=== PATIENT | female | born 1975 | race Caucasian/White ===

== ENCOUNTER 2019-09-21 12:09 | Outpatient (CLI) | payer OTHER, SELFPAY ==
[2019-09-24 13:53] LABS: Immunoglobulin G, Serum 527 mg/dL (600-1640); Immunoglobulin G1 311 mg/dL (382-929); Immunoglobulin G2 171 mg/dL (241-700); Immunoglobulin G3 54 mg/dL (22-178); Immunoglobulin G4 5.4 mg/dL (4.0-86.0)
== END 2019-09-21 12:10 | disposition home or self-care (01) ==
PROVIDERS: PCP Family Medicine; Visit Provider Nurse Practitioner Family
DX: D83.9 Common variable immunodeficiency, unspecified (principal)
CPT/HCPCS: 36415; 82784; 82787

== ENCOUNTER 2019-11-19 10:33 | Outpatient (CLI) | payer OTHER, SELFPAY ==
[2019-11-23 23:46] LABS: Immunoglobulin G, Serum 547 mg/dL (600-1640); Immunoglobulin G1 325 mg/dL (382-929); Immunoglobulin G2 169 mg/dL (241-700); Immunoglobulin G3 53 mg/dL (22-178); Immunoglobulin G4 5.2 mg/dL (4.0-86.0)
== END 2019-11-19 10:34 | disposition home or self-care (01) ==
LOC: ANHLAB 10:34
PROVIDERS: PCP Family Medicine; Visit Provider Nurse Practitioner Family
DX: D83.9 Common variable immunodeficiency, unspecified (principal)
CPT/HCPCS: 36415; 82784; 82787

== ENCOUNTER 2020-03-29 10:47 | Outpatient (CLI) | payer OTHER, SELFPAY ==
--- NOTE | ~2020-03-29 | XR_ITS ---
EXAMINATION: XR chest 2V DATE: 03/29/2020 11:12 INDICATION: Shortness of breath. TECHNIQUE: Frontal and lateral views of the chest were obtained. COMPARISON: Chest 2 views 05/20/2018, chest CT 08/07/2018 FINDINGS: The chest demonstrates clear lungs without pneumonia, pleural effusion, or pneumothorax. Th e heart size is normal. There are surgical clips in left axilla. IMPRESSION: 1. No acute cardiopulmonary disease. Reviewed, dictated and finalized at location A.
== END 2020-03-29 10:48 | disposition home or self-care (01) ==
PROVIDERS: PCP Family Medicine; Visit Provider Nurse Practitioner Family
DX: R06.02 Shortness of breath (principal)
CPT/HCPCS: 71046

== ENCOUNTER 2020-11-17 10:03 | Outpatient (CLI) | payer OTHER, SELFPAY ==
[2020-11-17 12:10] LABS: Free T4 Free Thyroxine 0.89 ng/mL (0.78-2.19)
== END 2020-11-17 10:04 | disposition home or self-care (01) ==
LOC: ANHLAB 10:06
PROVIDERS: PCP Family Medicine; Visit Provider Nurse Practitioner Family
DX: E66.9 Obesity, unspecified (principal); R53.83 Other fatigue
CPT/HCPCS: 36415; 84439; 84443

== ENCOUNTER 2022-11-18 10:53 | Observation (INO) | payer BC, SELFPAY ==
[2022-11-18] VITALS (19 sets, daily range): BP systolic 106–183; BP diastolic 62–94; PULSE 62–121; RESP 16–24; TEMP 36.4–37.6; O2SAT 90–99; BMI 29.2
--- NOTE | ~2022-11-18 | CT_ITS ---
EXAMINATION: CTA chest PE protocol DATE: 11/18/2022 12:41 INDICATION: Shortness of breath. TECHNIQUE: Computed tomography angiography (CTA) of the chest was performed with 100 mL Omnipaque-350 intravenous contrast timed to evaluate the pulmonary arteries. Coronal maximum intensity projection 3D-reconstructions were created by the technologist. Automated exposure control and iterative reconst ruction technique were employed. The dose-length product was 291.31 mGy-cm. COMPARISON: Chest CT 08/07/2018 FINDINGS: There is mild emphysema. There are tree-in-bud opacities and centrilobular nodules in all l obes, consistent with pneumonia. No pleural effusion. The heart size is normal. No pericardial effusi on. There is mild bilateral hilar and mediastinal lymphadenopathy, likely reactive. There is no pulmo nary embolus. There is mild thoracic spondylosis. There are surgical clips in left axilla. IMPRESSION: 1. No pulmonary embolus. 2. Widespread pneumonia. 3. Mild emphysema. Reviewed, dictated and finalized at location A.
--- NOTE | 2022-11-18 10:55 | ECG_ITS ---
Measurements Intervals [place] Rate: 114 P: 85 DC: 132 QRS: 65 QRSD: 92 T: 69 QT: 309 QTc: 426 Interpretive Statements SINUS TACHYCARDIA RIGHT ATRIAL ENLARGEMENT [0.3mV P-WAVE] MINIMAL VOLTAGE CRITERIA FOR LVH, CONSIDER NORMAL VARIANT [MEETS CRITERIA IN ONE OF: R(aVL), S(V1), R(V5), R(V5/V6)+S(V1)] ABNORMAL ECG Electronically Signed On 11-18-2022 12:00:51 CDT by Morales Sun M.D.
--- NOTE | 2022-11-18 10:57 | ED.GENADULT ---
HPI - General Adult General Chief complaint: Shortness of Breath/Dyspnea Stated complaint: SOB Time Seen by Provider: 11/18/22 10:55 History of Present Illness HPI narrative: Alka is a 47F with a PMH of COPD, IgG deficiency, tobacco abuse and obesity that presented to the ED with dyspnea that started 7 days ago. It has become progressively worse despite albuterol and being on steroids. She also admits coughing and sputum production. No CP, lightheadedness or syncope. Related Data Allergies Allergy/AdvReac Type Severity Reaction Status Date / Time No Known Allergies Allergy Verified 11/18/22 10:57 Review of Systems Review of Systems: All systems reviewed & are unremarkable except as noted in HPI and below PMFSH Past Medical History Medical History COPD (chronic obstructive pulmonary disease) Surgical History Surgical History H/O tubal ligation (~2016) Hx of cholecystectomy (~1994) Family History Family History Mother Family history of lung cancer Father Family history of malignant neoplasm of urinary bladder Other Asthma Social History Social History Smoking packs per day: 0.5 Smoking cigarettes per day: 10.0 Years smoked: 35 Smoking pack-years: 17.50 Smoking status: Former smoker Tobacco type: cigarettes Second hand tobacco smoke exposure: Yes Alcohol intake: never Gender identity (if verbalized by the patient): Female Spiritual care concerns: No Exam Const: General: ill appearing acutely Nutritional Appearance: well nourished Orientation/consciousness: patient oriented x3 HENMT: Head: normal to inspection Ears: external ears normal Face/Nose/Sinus: Normal external nose present Eyes: Conjunctivae: conjunctivae normal Pupils: Equal, round and reactive pupils present Neck: Neck: normal visual inspection Chest: Chest palpation & inspection: normal inspection of the chest Resp: Effort & Inspection: labored, tachypneic and uses accessory muscles Auscultation: wheezes expiratory wheezes and throughout Other: poor air movement Cardio: Rate: tachycardic Rhythm: regular rhythm Back/Spine/Pelvis: Back: no CVA tenderness Skin: General skin exam: normal color Neuro: General: patient oriented x3 and moves all extremities Extrem: General: normal to inspection Psych: Mental Status: mental status grossly normal Affect: normal affect Course Course Emergency Course: Ordered CT, labs and EKG as well as Solumedrol and duoneb and azithromycin EKG snowed sinus tachycardia at a rate of 114, normal axis, but no ST elevation or depression Labs largely unremarkable except for mild leukocytosis. EXAMINATION: CT chest abdomen wo con DATE: 11/18/2022 12:45 INDICATION: Foreign body ingestion. Cough and shortness of breath. Stridor. TECHNIQUE: Computed tomography (CT) of the chest and abdomen was performed without intravenous contrast. Automated exposure control and iterative reconstruction technique were employed. The dose-length product was 687.68 mGy-cm. COMPARISON: None FINDINGS: CHEST CT: Calcified right lung nodules and calcified right hilar lymph nodes are consistent with old granulomatous disease. There is minimal atelectasis bilaterally. No pleural effusion. The heart size is normal. No pericardial effusion.? There is a small volume of food in the esophagus. There is mild thoracic spondylosis. ABDOMEN CT: There is diffuse hepatic steatosis. There is a gallstone in the gallbladder, which is normal in size. Calcifications in the spleen are consistent with old granulomatous disease. The pancreas and adrenal glands are normal. There are cysts in the kidneys measuring up to 3.9 cm on the left. There are no dilated loops of bowel. There is mild aortic athero
[2022-11-18] MEDS: IPRATROPIUM 0.5 MG/ALBUTEROL SULFATE 2.5 MG AMPUL.NEB 3 ML INHALATION ×3 (11:04→23:28)
[2022-11-18] MEDS: methylPREDNISolone SOD SUCC 125 MG VIAL IV PUSH (11:14)
[2022-11-18 11:26] LABS: Basophils Absolute Auto 0.05 K/mm3 (0.00-0.10); Basophils Percent Auto 0.3 % (0.0-1.0); Eosinophils Absolute Auto 0.04 K/mm3 (0.02-0.50); Eosinophils Percent Auto 0.3 % (1.0-6.0); Hematocrit 43.3 % (35.0-49.0); Hemoglobin 14.6 g/dL (12.0-15.0); Immature Granulocyte Absolute 0.06 K/mm3 (0.00-0.00); Immature Granulocyte Percent A 0.4 % (0.0-0.0); Lymphocytes Absolute Auto 2.58 K/mm3 (1.10-4.50); Lymphocytes Percent Auto 17.4 % (18.0-42.0); Mean Corpuscular HGB Conc 33.7 g/dL (32.0-36.0); Mean Corpuscular Hemoglobin 32.9 pg (27.0-31.0); Mean Corpuscular Volume 97.5 fL (78.0-102.0); Mean Platelet Volume 9.6 fl (9.2-11.8); Monocytes Percent Auto 8.8 % (2.0-11.0); Neutrophils Absolute Auto 10.8 K/mm3 (1.7-7.2); Neutrophils Percent Auto 72.8 % (50.0-70.0); Platelet Count Result 330 K/mm3 (150-420); Red Blood Count 4.44 M/mm3 (4.20-5.40); Red Cell Distribution Width 12.3 % (11.6-14.4); White Blood Count 14.8 K/mm3 (4.8-10.8)
[2022-11-18 11:43] LABS: Lactic Acid Reflex 0.9 mmol/L (0.4-2.0)
[2022-11-18 11:52] LABS: Magnesium 1.8 mg/dL (1.8-2.4); NT Pro B Type Natriuretic Pept 71 pg/mL (0-125)
[2022-11-18 11:55] LABS: Influenza A QL RT-PCR Negative (Negative); Influenza B QL RT-PCR Negative (Negative); SARS-CoV-2 RNA PCR Negative (Negative)
[2022-11-18 11:57] LABS: Troponin I < 4.0 ng/L (0.00-60.4)
[2022-11-18 11:58] LABS: RSV RNA, RT-PCR Negative (Negative)
[2022-11-18 11:59] LABS: Alanine Aminotransferase 34 U/L (14-59); Albumin Level 3.1 g/dL (3.4-5.0); Alkaline Phosphatase 113 U/L (46-116); Anion Gap 11 mmol/L (8-16); Aspartate Amino Transferase 16 U/L (15-37); Bilirubin,Total 0.5 mg/dL (0.00-1.00); Blood Urea Nitrogen 8 mg/dL (7-18); Calcium 8.9 mg/dL (8.5-10.1); Carbon Dioxide 31 mmol/L (21-32); Chloride 100 mmol/L (98-108); Estimated Glomerular Filt Rate > 60; Glucose 111 mg/dL (70-99); Osmolality Calculated 293 mOsm/kg (285-295); Potassium 3.5 mmol/L (3.5-5.1); Sodium 142 mmol/L (136-145); Total Protein 7.3 g/dL (6.4-8.2)
[2022-11-18] MEDS: SODIUM CHLORIDE 0.9% IV 1,000 ML 999 ML IV CONT (12:32)
[2022-11-18] MEDS: cefTRIAXone 2 GM/NS 100 ML 2 GM/100 ML BAG IVPB (13:31)
--- NOTE | 2022-11-18 14:15 | PC.NURSE ---
Patient arrived to unit in w/c from ED. Patient able to transfer independently from w/c to bed and chair. Visiting hours, isolation precautions, dietary practices, hospital policies and rapid response system. Use of call light, bed controls and O2 portable tanks.
[2022-11-18] MEDS: methylPREDNISolone SOD SUCC 40 MG VIAL IV PUSH (17:11)
--- NOTE | 2022-11-18 18:50 | PC.NURSE ---
Patient uses portable O2 tank to ambulate to the bathroom. Patient gets SOB with exertion, but ambulates well, and is steady on her feet.
[2022-11-18] MEDS: traZODone HCL 50 MG TABLET PO (20:16)
[2022-11-19] VITALS (16 sets, daily range): BP systolic 107–134; BP diastolic 59–74; PULSE 59–117; RESP 16–24; TEMP 36.1–36.6; O2SAT 78–99
[2022-11-19] MEDS: IPRATROPIUM 0.5 MG/ALBUTEROL SULFATE 2.5 MG AMPUL.NEB 3 ML INHALATION ×4 (05:02→23:19)
[2022-11-19 05:12] LABS: Hematocrit 41.4 % (35.0-49.0); Hemoglobin 13.4 g/dL (12.0-15.0); Mean Corpuscular HGB Conc 32.4 g/dL (32.0-36.0); Mean Corpuscular Hemoglobin 31.9 pg (27.0-31.0); Mean Corpuscular Volume 98.6 fL (78.0-102.0); Mean Platelet Volume 9.9 fl (9.2-11.8); Platelet Count Result 319 K/mm3 (150-420); Red Cell Distribution Width 12.4 % (11.6-14.4); White Blood Count 14.1 K/mm3 (4.8-10.8)
[2022-11-19 05:32] LABS: Alanine Aminotransferase 31 U/L (14-59); Albumin Level 2.6 g/dL (3.4-5.0); Alkaline Phosphatase 98 U/L (46-116); Anion Gap 5 mmol/L (8-16); Aspartate Amino Transferase 12 U/L (15-37); Bilirubin,Total 0.2 mg/dL (0.00-1.00); Blood Urea Nitrogen 12 mg/dL (7-18); Calcium 9.2 mg/dL (8.5-10.1); Carbon Dioxide 34 mmol/L (21-32); Chloride 104 mmol/L (98-108); Estimated CRCL calculation 106 ml/min; Estimated Glomerular Filt Rate > 60; Glucose 115 mg/dL (70-99); Osmolality Calculated 296 mOsm/kg (285-295); Potassium 4.3 mmol/L (3.5-5.1); Sodium 143 mmol/L (136-145); Total Protein 6.4 g/dL (6.4-8.2)
--- NOTE | 2022-11-19 07:59 | PM.IMHP ---
H&P: HPI History of Present Illness Date/Time: 11/19/22 07:59 Chief Complaint: dyspnea shortness of breath Narrative: this is a 47-year-old female who presented to our emergency department with complaints of shortness of breath and dyspnea. Patient has a past medical history of COPD, IgG deficiency, and obesity. According to patient for the last 2 weeks she has been having shortness of breath that has worsened. Patient notes that she use [id number] oxygen supplement that worked for short period of time and has increased her use of nebulizer treatment with no improvement. she has been admitted for pneumonia and COPD exacerbation. WBC is 14.8, hemoglobin 14.6, hematocrit 43.3, platelets 330, sodium 42, potassium 3.5, BUN 8, creatinine 0.52, glucose 111. Patient received IV antibiotics along with steroids and nebulizer treatment. Patient is anxious to discharge home explained to patient that we will need to see her wbc's decreased before she can not be discharged home. The patient denies SOB, CP, palpitation, extremity numbness, lightheadedness, dizziness, constipation, diarrhea, chills, or fever. Review of Systems Review of Systems: All systems reviewed & are unremarkable except as noted in HPI and below PMFSH Past Medical History Medical History COPD (chronic obstructive pulmonary disease) Surgical History Surgical History H/O tubal ligation (~2016) Hx of cholecystectomy (~1994) Family History Family History Mother Family history of lung cancer Father Family history of malignant neoplasm of urinary bladder Other Asthma Social History Social History Smoking packs per day: 1.5 Smoking cigarettes per day: 30.0 Years smoked: 32 Smoking pack-years: 48.00 Smoking status: Former smoker Tobacco type: cigarettes Second hand tobacco smoke exposure: Yes Smoking end date: 10/26/20 Alcohol intake: current Drinks per week: 2 Substance use: never Substance use type: does not use Lack of Transportation: No Lack of Food: Never True Current Housing: I Have Housing Concerned About Future Housing: No Difficulty Paying Gas/Electric Bills: YES Difficulty Paying for Meds: YES Currently Unemployed: No Education: High School Diploma/GED Difficulty w/ Childcare or Family Care: No Gender identity (if verbalized by the patient): Female Spiritual care concerns: No Meds Home Medications and Allergies Home Medications Medication Instructions Recorded Confirmed Type inhalational spacing device #1 ea 09/18/20 11/18/22 Rx (Aerochamber MV spacer) albuterol sulfate 90 mcg/actuation See Rx Instructions .Route 01/23/21 11/18/22 Rx aerosol inhaler .COMPLEX #8.5 grams albuterol sulfate 2.5 mg/3 mL 2.5 mg (3 mL) inhalation TID PRN 03/20/21 11/18/22 Rx (0.083 %) solution for nebulization shortness of breath or wheezing 30 days #270 mL Allergies Allergy/AdvReac Type Severity Reaction Status Date / Time No Known Allergies Allergy Verified 11/18/22 10:57 Vital Signs Vital Signs - 24 hr 11/18/22 11:01 11/18/22 11:04 11/18/22 11:10 Temperature 37.6 C H Pulse Rate 111 H 114 H 121 H Respiratory Rate 20 24 H 24 H Blood Pressure 183/94 H Pulse Oximetry 97 96 Oxygen Delivery Nasal Cannula Oxygen Flow Rate 3 3 11/18/22 13:46 11/18/22 13:14 11/18/22 13:00 Temperature Pulse Rate 103 H 104 H 111 H Respiratory Rate 17 17 17 Blood Pressure 124/87 125/74 127/87 Pulse Oximetry 92 91 91 Oxygen Delivery Nasal Cannula Nasal Cannula Nasal Cannula Oxygen Flow Rate 2 2 2 11/18/22 12:30 11/18/22 12:00 11/18/22 11:30 Temperature Pulse Rate 113 H 112 H 113 H Respiratory Rate 17 17 18 Blood Pressure 106/74 120/76 111/79 Puls
[2022-11-19] MEDS: ENOXAPARIN 40 MG/0.4 ML SYRINGE SUB-Q (09:06)
[2022-11-19] MEDS: methylPREDNISolone SOD SUCC 40 MG VIAL IV PUSH (09:06)
[2022-11-19] MEDS: traZODone HCL 50 MG TABLET 150 MG PO (23:25)
[2022-11-20] VITALS (9 sets, daily range): BP systolic 118–122; BP diastolic 70–78; PULSE 80–110; RESP 16–20; TEMP 36.3–36.6; O2SAT 86–99
[2022-11-20] MEDS: IPRATROPIUM 0.5 MG/ALBUTEROL SULFATE 2.5 MG AMPUL.NEB 3 ML INHALATION (05:00)
[2022-11-20 05:25] LABS: Hematocrit 38.3 % (35.0-49.0); Hemoglobin 12.7 g/dL (12.0-15.0); Mean Corpuscular HGB Conc 33.2 g/dL (32.0-36.0); Mean Corpuscular Hemoglobin 32.9 pg (27.0-31.0); Mean Corpuscular Volume 99.2 fL (78.0-102.0); Mean Platelet Volume 9.7 fl (9.2-11.8); Platelet Count Result 342 K/mm3 (150-420); Red Blood Count 3.86 M/mm3 (4.20-5.40); Red Cell Distribution Width 12.5 % (11.6-14.4); White Blood Count 12.1 K/mm3 (4.8-10.8)
[2022-11-20 05:36] LABS: Alanine Aminotransferase 40 U/L (14-59); Albumin Level 2.4 g/dL (3.4-5.0); Alkaline Phosphatase 83 U/L (46-116); Anion Gap 3 mmol/L (8-16); Aspartate Amino Transferase 20 U/L (15-37); Bilirubin,Total 0.1 mg/dL (0.00-1.00); Blood Urea Nitrogen 11 mg/dL (7-18); Calcium 8.5 mg/dL (8.5-10.1); Carbon Dioxide 36 mmol/L (21-32); Chloride 104 mmol/L (98-108); Estimated CRCL calculation 95 ml/min; Estimated Glomerular Filt Rate > 60; Glucose 98 mg/dL (70-99); Osmolality Calculated 295 mOsm/kg (285-295); Potassium 3.4 mmol/L (3.5-5.1); Sodium 143 mmol/L (136-145); Total Protein 5.7 g/dL (6.4-8.2)
--- NOTE | 2022-11-20 06:13 | PC.NURSE ---
patient was ambulating in the room with her oxygen on, 02 saturation dropped to 75%. when having patient sit and rest with 02 on at 2L/NC her 02 saturation increased to 90%. patient continues to have a moist productive cough of clear/yellow sputum, states that she coughs more and has more sputum after her breathing treatments. this nurse explained that it was a positive sign that she was doing both of those things. lung sounds continue to sound as previous assessment. remains afebrile.
--- NOTE | 2022-11-20 08:44 | PM.DS ---
DS: Admitting Diagnosis Discharge Date 11/20/2022 Admitting Diagnosis Pneumonia, Hypertension, COPD Exacerbation DS: Discharge Diagnosis Discharge Diagnosis (1) Bilateral pneumonia: Code(s): J18.9 - Pneumonia, unspecified organism Status: Acute Assessment and Plan: imaging indicates bilateral pneumonia WBCs elevated will continue Rocephin added vancomycin continue Solu-Medrol with breathing treatments a supplementary oxygen (2) Obesity: Code(s): E66.9 - Obesity, unspecified Status: Acute Assessment and Plan: educated on healthy lifestyle (3) Poor sleep pattern: Code(s): G47.8 - Other sleep disorders Status: Acute Assessment and Plan: continue trazodone (4) IgG deficiency: Code(s): D80.3 - Selective deficiency of immunoglobulin G [IgG] subclasses Status: Acute (5) COPD (chronic obstructive pulmonary disease): Qualifiers: COPD type: unspecified COPD Qualified Code(s): J44.9 - Chronic obstructive pulmonary disease, unspecified Code(s): J44.9 - Chronic obstructive pulmonary disease, unspecified Status: Acute Assessment and Plan: worsened by pneumonia refer to pneumonia Plan Requiring 2l of oxygen at all times DS: Summary Hospital Course Reason for hospitalization: COPD exacerbation, [place] Hospital Course: This is a 47 year old female that required hospitalization for pneumonia, Hypoxia and COPD exacerbation. Patient required breathing treatments, IV Steroids and IV antibiotics. Patient required oxygen and was attempted to be weaned off and we needed to replace patient back on the oxygen as she dropped in the 80's. Patient did have a walk study and she was requiring to have oxygen placed on while she ambulating and we will need to send her home on oxygen @2l. Patient has a gut sorter in which she sees and she has quit smoking 2 years ago. Patient has remained afebrile , she is eating and drinking without any difficuties . Patient does still sound pretty junky but she insist that she has to leave today. She has a nebulizer at home and inhalers have been order with oral antibiotic and steroids. We will plan on ordering oxygen for home at this time. Time Spent with Patient Time attestation: Total time spent providing and/or coordinating discharge services: Exam Narrative: GENERAL: This is a well-nourished, well-developed patient, in no apparent distress. HEAD: normocephalic, atraumatic. EYES: PERRL. Sclera clear/white. Vision is grossly intact. EARS: External ears normal, auditory canals clear and without drainage, TMs normal without perforation. Hearing grossly intact. NOSE: External nose normal with no obvious nasal discharge, nares without redness, no rhinorrhea. THROAT: Mucous membranes moist, posterior pharynx clear. NECK: Neck supple, non-tender without lymphadenopathy, masses or thyromegaly. CARDIOVASCULAR: Regular rate and rhythm without murmurs, gallops, or rubs. RESPIRATORY: diminished throughout scattered wheezes and coughing noted GASTROINTESTINAL: Abdomen soft, non-tender, nondistended. Bowel sounds are active. No hepato-splenomegaly, or palpable masses. No guarding. SKIN: warm, intact with no suspicious lesions or rash, good texture and turgor. NEURO: awake, alert, and oriented to person, place and time. There were no obvious focal neurologic abnormalities. EXTREMITIES: Normal range of motion. No edema. No calf tenderness. DS: Data Data Completed and Pending Labs on day of discharge: Labs from last 24 hours 11/20/22 04:55 WBC 12.1 H RBC 3.86 L Hgb 12.7 Hct 38.3 MCV 99.2 MCH 32.9 H MCHC 33.2 RDW 12.5 Plt Count 342 MPV 9.7 Sodium 143 Potassium 3.4 L Chloride 104 Carbon Dioxide 36 H Anion Gap 3 L BUN 11 Creatinine 0.58 Estim Creat Clear Calc 95 Estimated GFR > 60 Glucose 98 Calculated Osmolality 295 Calcium 8.5 Total Bilirubin 0.1
[2022-11-20] MEDS: methylPREDNISolone SOD SUCC 40 MG VIAL IV PUSH (08:52)
--- NOTE | 2022-11-20 11:19 | PC.NURSE ---
Pt discharged to home and family care. Medication instruction given. Dosage, times, purpose and SE of drugs. Pt instructed on S&S to report to MD or return here. Pt instructed to make a follow up appointment with her MD in 1 week. Prescriptions sent to [facility] in [place]. Pt instructed in use of home O2 and to call [facility] the O2 provider when she gets home. Pt verbalized understanding of all instructions. RN took pt to the car via WC and helped her in.
--- NOTE | 2022-11-20 14:12 | PCCCNOTE ---
[employer] called and states they do not accept pt's insurance. Informed rep that [facility] had called prior to pt discharge and was told [facility] does accept [employer] [place]. [facility] states they do not, will notify [facility] when another company found to provide her O2. Faxed order to [facility] and spoke to rep who states they accept pt's insurance and they are working on the order now. Called pt's Ad[facility] [phone] and updated him of change. ([facility] had called twice inquiring about who would be providing O2 at home since [facility] denied.)
--- NOTE | 2022-11-21 09:38 | PCCCNOTE ---
Spoke to Alka this morning and she states that [facility] delivered oxygen to her home last night. [facility] that she was sent home with today.
--- NOTE | 2022-11-22 14:46 | PC.NURSE ---
Pt states she received and understood her discharge instructions. Pt also states her care was excellent .
== END 2022-11-20 11:05 | disposition home or self-care (01) ==
LOC: CHSED 13:00 → CHS2ND 14:06
PROVIDERS: Nurse Practitioner; Admitting Provider Internal Medicine; Emergency Provider Family Medicine; PCP Family Medicine; Visit Provider Internal Medicine
DX: J18.9 Pneumonia, unspecified organism (principal); J44.0 Chronic obstructive pulmonary disease with (acute) lower respiratory infection; J44.1 Chronic obstructive pulmonary disease with (acute) exacerbation; D80.3 Selective deficiency of immunoglobulin G [IgG] subclasses; Z20.822 Contact with and (suspected) exposure to COVID-19; Z87.891 Personal history of nicotine dependence
CPT/HCPCS: 36415; 71275; 80053; 83605; 83735; 83880; 84484; 85025; 85027; 87081; 87637; 93005; 94618; 94640; 96361; 96365; 96366; 96367; 96372; 96375; 96376; 99285; A9270; G0378; J0456; J0696; J1650; J2920; J2930; J3370; J7030; Q9967

== ENCOUNTER 2022-12-27 07:46 | Outpatient (CLI) | payer BC, SELFPAY ==
--- NOTE | ~2022-12-27 | CT_ITS ---
Clinical Indication: Pneumonia CT Scan of the Chest with Contrast: Technique: Contiguous sections were acquired throughout the chest after intravenous administration of 75 cc of Omnipaque 350. Dose reduction technique was used on this scan by utilizing automated exposu re control and iterative reconstruction technique. The dose-length product (DLP) was 152.25 mGy-cm. COMPARISON: 11/18/2022 Findings: There is no evidence of any significant mediastinal, hilar or axillary lymphadenopathy. Mediastinal s oft tissues and vascular structures appear unremarkable. There is no evidence of pleural or pericardial effusion. There is a vague area of minimal groundglass opacity in the right middle lobe. Previously identified tree-in-bud opacities and centrilobular nodules are essentially completely resolved otherwise. Images through the upper abdomen reveal no abnormalities. Impression: Single vague area of minimal ground glass opacity right middle lobe, nonspecific. This could reflect postinflammatory change or possibly focal pneumonitis. Extensive tree-in-bud opacities and centrilobular nodules seen on prior exam are otherwise completely resolved. Reviewed, dictated and finalized at [facility]. Impression: Single vague area of minimal ground glass opacity right middle lobe, nonspecifi c. This could reflect postinflammatory change or possibly focal pneumonitis. Extensive tree-in-bud opacities and centrilobular nodules seen on prior exam ar e otherwise completely resolved.
--- NOTE | 2022-12-27 10:49 | WPDPFTINT ---
PFT Procedure Performed PFT Procedure Performed Spirometry with Pre/Post Bronchodilator Plethysmography (Lung Vol) Diffusing Cap (DLCO) Flow Vol Loop PFT Interpretation Lung volumes were measured with the body plethysmography method. The elevated FRC and RV are indicative of air trapping. The elevated total lung capacity is indicative of lung hyperinflation. Spirometry showed diminished expiratory flow rates and a diminished FEV1 to FVC ratio of 53%, indicative of obstructive airway disease. Following administration of a bronchodilator there was no significant increase in the expiratory flow rates. Lung diffusion capacity was not measured as patient was unable to perform the maneuvers. The flow-volume loop is consistent with obstructive airway disease. In comparison to previous study in 2019 the post bronchodilator FVC is now lower by approximately 0.4 L and the post bronchodilator FEV1 is also lower by approximately 0.6 L. Impression: Severe obstructive airway disease with evidence of air trapping, lung hyperinflation and no response to bronchodilator on this testing.
--- NOTE | 2022-12-27 10:54 | WPDSIXMINUTE ---
Six Minute Walk Procedure Procedure Performed Pulmonary Stress Test (6 min walk) Six Minute Walk Six Minute Walk: This 6 minute walk test was carried out with the patient breathing ambient air. The baseline pre walk oxyhemoglobin saturation was 92%. The patient walked 305 m with no stops during testing. During the walk the oxyhemoglobin saturation remained in the range of 91% to 94%. The perceived dyspnea on the Evert scale at baseline was 1 and increased to 3 at the end of testing. Impression: No evidence of oxyhemoglobin desaturation on this testing.
== END 2022-12-27 07:47 | disposition home or self-care (01) ==
LOC: ANHPFT 07:47
PROVIDERS: PCP Family Medicine; Visit Provider Internal Medicine Pulmonary Disease
DX: J18.9 Pneumonia, unspecified organism (principal); J44.9 Chronic obstructive pulmonary disease, unspecified
CPT/HCPCS: 71260; 94060; 94375; 94618; 94726; 94729; Q9967

== ENCOUNTER 2023-11-20 20:04 | Emergency (ER) | payer BC, SELFPAY ==
[2023-11-20] VITALS (8 sets, daily range): BP systolic 128–156; BP diastolic 74–100; PULSE 85–108; RESP 18–28; TEMP 37.2; O2SAT 92–99
--- NOTE | ~2023-11-20 | XR_ITS ---
EXAMINATION: XR chest 1V portable DATE: 11/20/2023 20:47 INDICATION: Dyspnea. TECHNIQUE: A single frontal view of the chest was obtained. COMPARISON: Chest 2 views 03/29/2020 FINDINGS: There are mild airspace opacities in left lower lung zone. No pleural effusion or pneumotho rax. The heart size is normal. There are surgical clips in left axilla. IMPRESSION: 1. Mild airspace opacities in left lower lung zone, consistent with atelectasis versus pneumonia. Reviewed, dictated and finalized at location E.
--- NOTE | 2023-11-20 20:18 | ECG_ITS ---
SEE SCANNED COPY FOR CONFIRMED REPORT MTDD
--- NOTE | 2023-11-20 20:27 | ED.SOB ---
HPI - SOB/Dyspnea General Chief Complaint: Shortness of Breath/Dyspnea Stated Complaint: Chest Pain Time Seen by Provider: 11/20/23 20:13 Source: patient and family Mode of arrival: ambulatory Limitations: no limitations History of Present Illness HPI Narrative: this is a 48-year-old female presents with shortness of breath has a history of tobacco abuse and COPD that has been shortness of breath over the past week but has increased over the last 24hours cough is productive of clear sputum with no fever chills has pain in her chest with deep inspiration with no nausea vomiting no abdominal pain no flank pain. MD elicited complaint: shortness of breath, cough and pain with inspiration Pertinent past history: COPD Onset (ago): week(s) Severity: moderate Related Data Allergies Allergy/AdvReac Type Severity Reaction Status Date / Time No Known Allergies Allergy Verified 12/04/22 13:52 Review of Systems Review of Systems: All systems reviewed & are unremarkable except as noted in HPI and below PMFSH Past Medical History Medical History COPD (chronic obstructive pulmonary disease) Surgical History Surgical History H/O tubal ligation (~2016) Hx of cholecystectomy (~1994) Family History Family History Mother Family history of lung cancer Father Family history of malignant neoplasm of urinary bladder Other Asthma Social History Social History Smoking packs per day: 1.5 Smoking cigarettes per day: 30.0 Years smoked: 32 Smoking pack-years: 48.00 Smoking status: Former smoker Tobacco type: cigarettes Second hand tobacco smoke exposure: Yes Smoking end date: 10/26/20 Alcohol intake: current Drinks per week: 2 Substance use: never Substance use type: does not use Lack of Transportation: No Lack of Food: Never True Current Housing: I Have Housing Concerned About Future Housing: No Difficulty Paying Gas/Electric Bills: YES Difficulty Paying for Meds: YES Currently Unemployed: No Education: High School Diploma/GED Difficulty w/ Childcare or Family Care: No Gender identity (if verbalized by the patient): Female Spiritual care concerns: No Exam Const: General: no acute distress Nutritional Appearance: well nourished Orientation/consciousness: patient oriented x3 Limitations: no limitations HENMT: Head: normal to inspection Neck: Neck: normal visual inspection Chest: Chest palpation & inspection: normal inspection of the chest Resp: Effort & Inspection: normal respiratory effort Auscultation: diminished lung sounds Cardio: Rate: tachycardic Rhythm: regular rhythm GI: GI Palp: Yes Soft to palpation Auscultation: normal bowel sounds : General: Yes bladder normal to palpation Skin: General skin exam: normal color Course Course Emergency Course: [place] [id number] patient did receive DuoNebs and IV steroids Solu-Medrol 125mg, pain relief with 30mg IV Toradol patient also received azithromycin and ceftriaxone, chest x-ray shows left lower lobe opacities consistent with pneumonia. Will treat outpatient basis with some p.o. antibiotics and p.o. steroids and advised follow-up with her primary Vital Signs Vital signs: Vital Signs Temperature 37.2 C 11/20/23 20:05 Pulse Rate 108 H 11/20/23 20:05 Respiratory Rate 28 H 11/20/23 20:05 Blood Pressure 156/100 H 11/20/23 20:05 Pulse Oximetry 94 11/20/23 20:05 Oxygen Delivery Room Air 11/20/23 20:05 Temperature 37.2 C 11/20/23 20:05 Pulse Rate 108 H 11/20/23 20:05 Respiratory Rate 28 H 11/20/23 20:05 Blood Pressure 156/100 H 11/20/23 20:05 Pulse Oximetry 94 11/20/23 20:05 Oxygen Delivery Room Air 11/20/23 20:05 MDM - SOB/Dyspne
[2023-11-20] MEDS: methylPREDNISolone SOD SUCC 125 MG VIAL IV PUSH (20:29)
[2023-11-20] MEDS: IPRATROPIUM 0.5 MG/ALBUTEROL SULFATE 2.5 MG AMPUL.NEB 3 ML INHALATION (20:29)
[2023-11-20 20:30] LABS: Basophils Absolute Auto 0.07 K/mm3 (0.00-0.10); Basophils Percent Auto 0.6 % (0.0-1.0); Eosinophils Absolute Auto 0.21 K/mm3 (0.02-0.50); Eosinophils Percent Auto 1.7 % (1.0-6.0); Hematocrit 50.4 % (35.0-49.0); Hemoglobin 16.4 g/dL (12.0-15.0); Immature Granulocyte Absolute 0.05 K/mm3 (0.00-0.00); Immature Granulocyte Percent A 0.4 % (0.0-0.0); Lymphocytes Absolute Auto 3.82 K/mm3 (1.10-4.50); Lymphocytes Percent Auto 30.6 % (18.0-42.0); Mean Corpuscular HGB Conc 32.5 g/dL (32-36); Mean Corpuscular Hemoglobin 32.3 pg (27.0-31.0); Mean Corpuscular Volume 99.4 fL (78.0-102.0); Mean Platelet Volume 9.3 fl (9.2-11.8); Monocytes Absolute Auto 0.68 K/mm3 (0.10-0.90); Monocytes Percent Auto 5.5 % (2.0-11.0); Neutrophils Absolute Auto 7.64 K/mm3 (1.70-7.20); Neutrophils Percent Auto 61.2 % (50.0-70.0); Platelet Count Result 329 K/mm3 (150-420); Red Blood Count 5.07 M/mm3 (4.20-5.40); Red Cell Distribution Width 13.2 % (11.6-14.4); White Blood Count 12.5 K/mm3 (4.8-10.8)
[2023-11-20 20:46] LABS: D Dimer 0.35 mg/L (0.19-0.50); INR 0.9; Partial Thromboplastin Time 28.2 Sec (23.9-30.70); Prothrombin Time 10.3 Seconds (9.50-12.1)
[2023-11-20 20:52] LABS: Alanine Aminotransferase 20 U/L (14-59); Albumin Level 3.5 g/dL (3.4-5.0); Alkaline Phosphatase 126 U/L (46-116); Anion Gap 9 mmol/L (4-12); Aspartate Amino Transferase 12 U/L (15-37); Bilirubin,Total 0.2 mg/dL (0.00-1.00); Blood Urea Nitrogen 10 mg/dL (7-18); Calcium 9.3 mg/dL (8.5-10.1); Carbon Dioxide 31 mmol/L (21-32); Chloride 102 mmol/L (98-108); Estimated CRCL calculation 73 ml/min; Estimated Glomerular Filt Rate > 60; Glucose 110 mg/dL (70-99); Lactic Acid Reflex 1.4 mmol/L (0.4-2.0); NT Pro B Type Natriuretic Pept < 11 pg/mL (0-125); Osmolality Calculated 294 mOsm/kg (285-295); Potassium 3.8 mmol/L (3.5-5.1); Sodium 142 mmol/L (136-145); Total Protein 7.1 g/dL (6.4-8.2)
[2023-11-20 20:53] LABS: Troponin I < 4.0 ng/L (0.00-60.4)
[2023-11-20 21:16] LABS: SARS-CoV-2 RNA PCR Negative (Negative)
[2023-11-20 21:18] LABS: Influenza A QL RT-PCR Negative (Negative); Influenza B QL RT-PCR Negative (Negative); RSV RNA, RT-PCR Negative (Negative)
[2023-11-20] MEDS: KETOROLAC 30 MG/ML VIAL (*BKC) IV PUSH (21:25)
[2023-11-20] MEDS: AZITHROMYCIN 500 MG/NS 250 ML 500 MG/250 ML BAG 250 MG IVPB (22:00)
--- NOTE | 2023-11-27 12:22 | PC.NURSE ---
Final blood culture report: No growth after 5 days, no further action or treatment needed at this time.
== END 2023-11-20 23:20 | disposition home or self-care (01) ==
PROVIDERS: Emergency Provider Emergency Medicine
DX: J44.0 Chronic obstructive pulmonary disease with (acute) lower respiratory infection (principal); J18.9 Pneumonia, unspecified organism; Z87.891 Personal history of nicotine dependence; Z79.51 Long term (current) use of inhaled steroids; Z20.822 Contact with and (suspected) exposure to COVID-19
CPT/HCPCS: 36415; 71045; 80053; 83605; 83735; 83880; 84484; 85025; 85380; 85610; 85730; 87040; 87637; 93005; 94640; 96365; 96367; 96375; 99284; J0456; J0696; J1885; J2919